=== PATIENT | male | born 1990 | race Caucasian/White ===

== ENCOUNTER 2020-06-18 00:47 | Emergency (ER) | payer OTHER ==
[~2020-06-18] VITALS: Ht 167.6 cm; Wt 82.0 kg
[2020-06-18] MEDS ORDERED: ALBUTEROL/IPRATROPIUM 2.5MG/0.5MG, 3 ML ONE (01:08)
[2020-06-18] MEDS ORDERED: ALBUTEROL 0.5%, 20ML ONE (01:10)
--- NOTE | 2020-06-18 01:10 | NUR ---
THIS IS A 29 YO M W/ C/O SOB THAT STARTED TODAY. PT REPORTS HX OF ASTHMA, NO RELIEF W/ INHALERS. PT DENIES DIZZINESS/CP. PT 86% RA. REQUIRING 6L NC TO MAINTAIN O2 SAT >90%. AT BEDSIDE. PT RESTING ON GURNEY W/ CALL LIGHT IN REACH AND SIDE RAILS UPX2. CONNECTED TO ALL MONITORING.
[2020-06-18] MEDS ORDERED: ALBUTEROL 0.5%, 20ML NPPB SCH ×2 (01:30→02:30)
[2020-06-18] MEDS ORDERED: ALBUTEROL/IPRATROPIUM 2.5MG/0.5MG, 3 ML NPPB ONE (01:30)
[2020-06-18] MEDS ORDERED: PLEASE ENTER ALLERGIES MC SCH (01:30)
--- NOTE | 2020-06-18 01:30 | NUR ---
CONTINOUS BREATHING TX SET UP AND ADMIN BY RT.
--- NOTE | 2020-06-18 01:41 | NUR ---
CONTINOUS BREATHING TX IN PROGRESS, VSS, PAIGEN.
[2020-06-18] MEDS ORDERED: IPRATROPIUM 0.5 MG/2.5 ML INHA ONE ×2 (02:16→02:37)
[2020-06-18] MEDS ORDERED: IPRATROPIUM 0.5 MG/2.5 ML INHA NPPB ONE (02:30)
--- NOTE | 2020-06-18 02:43 | NUR ---
CONTINOUS BREATHING TX SET UP AND ADMIN BY RT, IN PROGRESS.
--- NOTE | 2020-06-18 03:59 | NUR ---
ATROVENT BREATHING TX SET UP FOR PT.
--- NOTE | 2020-06-18 04:00 | NUR ---
PT REPORTS IMPROVEMENT IN SYMPTOMS.
[2020-06-18 04:19] VITALS: BP 95/68
--- NOTE | 2020-06-18 04:30 | NUR ---
Patient given discharge instructions and they have confirmed that they understand the instructions. Patient ambulatory with steady gait.
== END 2020-06-18 04:32 | disposition home or self-care (01) ==
LOC: ED 02:28
DX: J45.42 Moderate persistent asthma with status asthmaticus (principal); R94.31 Abnormal electrocardiogram [ECG] [EKG]; R09.02 Hypoxemia
CPT/HCPCS: 93005; 94640; 94644; 99285; J7512; J7644

== ENCOUNTER 2020-08-13 07:05 | Emergency (ER) | payer OTHER ==
--- NOTE | 2020-08-13 07:20 | NUR ---
First contact with pt: pt sitting up in bed with difficultly breathing. Pt speaking in two word sentences. Intercostal retractions noted. Pt on 3L NC with 92% O2 sat. Pt has a Hx of asthma and reports taking rescue inhaler prior to arrival. Pt placed in gown, on contious O2, heart and BP monitors. Dr. Kohler at bedside to evaluate.
[2020-08-13] MEDS ORDERED: ALBUTEROL/IPRATROPIUM 2.5MG/0.5MG, 3 ML ONE ×2 (07:25→08:09)
[2020-08-13] MEDS: ALBUTEROL/IPRATROPIUM 2.5MG/0.5MG, 3 ML NPPB SCH ×2 (07:30→08:15)
--- NOTE | 2020-08-13 07:30 | NUR ---
MEDICATED PER MAR, GIVEN BREATHING TREATMENTS
--- NOTE | 2020-08-13 08:13 | NUR ---
Pt reports that he is still feeling like he cant breath. Less intercostal retractions noted. Pt tolerating RA at 92%. Second duo neb initiated per AUG. POC discussed.
--- NOTE | 2020-08-13 08:38 | NUR ---
Reassess pt after admin of 2nd duo neb. Pt complaint of SOB. Pulse ox reads 88% on RA. Pt placed on 2L NC with 91% pulse ox.
[2020-08-13] MEDS ORDERED: GUAIFENESIN/DM 200-20MG, 10ML UDC PO PRN ×2 (09:30→11:15)
[2020-08-13] MEDS ORDERED: ACETAMINOPHEN 325 MG TABLET PO PRN ×2 (09:30→11:15)
[2020-08-13] MEDS ORDERED: TRAZODONE 50MG TABLET PO PRN ×2 (09:30→11:15)
[2020-08-13] MEDS ORDERED: MELATONIN 5 MG TABLET PO PRN ×2 (09:30→11:15)
[2020-08-13] MEDS ORDERED: PLEASE ENTER PATIENTS WEIGHT MC SCH (09:30)
[2020-08-13] MEDS ORDERED: ONDANSETRON 2MG/ML, 2ML IVPush PRN ×2 (09:30→11:15)
[2020-08-13] MEDS ORDERED: ONDANSETRON ODT 4 MG PO PRN ×2 (09:30→11:15)
[2020-08-13] MEDS ORDERED: ENOXAPARIN 40 MG/0.4 ML SQ SCH ×2 (09:30→11:15)
--- NOTE | 2020-08-13 09:40 | NUR ---
task RN: attempted to enter room for IV start on behalf of primary RN pt refuses IV placement at this time. attempted pt education regarding the importance of pending imaging scan. pt still refuses IV. Danuta SCOTT notified
[2020-08-13 09:48] LABS: BASOPHILS % (AUTO) 1 % (0-1); EOSINOPHILS % (AUTO) 10 % (1-7); LYMPHOCYTES % (AUTO) 10 % (22-44); MEAN CORPUSCULAR HEMOGLOBIN 30.7 pg (27.5-34.5); MEAN PLATELET VOLUME 8.6 fL (7.4-10.4); MONOCYTES % (AUTO) 3 % (2-9); NEUTROPHILS % (AUTO) 77 % (42-75); RED BLOOD COUNT 5.86 x10^6/uL (4.38-5.82); RED CELL DISTRIBUTION WIDTH 15.9 % (9.4-14.8)
--- NOTE | 2020-08-13 09:54 | NUR ---
Pt refusing admission as well as PIV insertion. Dr. Kohler made aware of this. Awaiting further orders.
[2020-08-13 09:59] LABS: ALANINE AMINOTRANSFERASE 40 U/L (12-78); ALBUMIN 4.2 g/dL (3.4-5.0); ANION GAP 6 mmol/L (5-15); CALCIUM 9.3 mg/dL (8.5-10.1); CHLORIDE 102 mmol/L (98-107); CREATININE 1.23 mg/dL (0.7-1.3)
[2020-08-13 10:01] LABS: ALKALINE PHOSPHATASE 54 U/L (45-117); BILIRUBIN,TOTAL 0.7 mg/dL (0.2-1.0); TOTAL PROTEIN 7.5 g/dL (6.4-8.2)
[2020-08-13 10:21] LABS: MD SCAN; PLATELET COUNT 253 x10^3/uL (130-400)
--- NOTE | 2020-08-13 10:43 | NUR ---
PT CONTINUES TO REFUSE ADMIT TO [facility] DESPITE EDUCATION ABOOUT RISKS OF LEAVING, INCLUDING BY BOTH DR. DUNN AND THIS RN. PT A&O X4, ABLE TO DRESS SELF FULLY, AND CONTACT SOMEONE FOR A RIDE HOME. PT ENCOURAGED TO RETURN IF SITUATION WORSENS OR HE CHANGES HIS MIND. PT VERBALIZES UNDERSTANDNG. AMA FORM SIGNED.
[2020-08-13 10:45] VITALS: BP 113/90
== END 2020-08-13 10:50 | disposition left against medical advice (07) ==
LOC: ED 09:11 → UNDOADMIN 09:12 → EDIP 09:12 → ED 10:17 → 3N 10:20 → EDIP 10:20 → ED 10:50 → UNDODISIN 11:01
DX: J45.41 Moderate persistent asthma with (acute) exacerbation (principal); J96.00 Acute respiratory failure, unspecified whether with hypoxia or hypercapnia; R00.0 Tachycardia, unspecified; I21.9 Acute myocardial infarction, unspecified
CPT/HCPCS: 36415; 71045; 80053; 85025; 85379; 93005; 94640; 99285; J7512